=== PATIENT | female | born 1990 | race Caucasian/White ===

== ENCOUNTER 2017-11-25 01:40 | Emergency (ER) | payer OTHER ==
[~2017-11-25] VITALS: Ht 154.9 cm; Wt 83.0 kg
[2017-11-25 01:44] VITALS: Ht 154.9 cm; Wt 83.0 kg
[2017-11-25 03:38] VITALS: BP 112/79
== END 2017-11-25 03:38 | disposition home or self-care (01) ==
LOC: ED 01:40
DX: H73.011 Bullous myringitis, right ear (principal); J06.9 Acute upper respiratory infection, unspecified; J45.909 Unspecified asthma, uncomplicated